=== PATIENT | female | born 1950 | race Two or more races ===

== ENCOUNTER → 2025-05-17 | Day surgery (SDC) | payer OTHER | END | disposition home or self-care (01) | LOC: FMAMMOTONE 09:47 → EDSTATUS 10:30 | PROVIDERS: ATTEND Surgery | PROC: 0H95XZX Drainage of Chest Skin, External Approach, Diagnostic (ICD-10-PCS; principal; 2025-05-17) | DX: N60.91 Unspecified benign mammary dysplasia of right breast (principal); R92.1 Mammographic calcification found on diagnostic imaging of breast | CPT/HCPCS: 19081; C1739; 76098-TC-FY; 87899; 88305-TC; A4648 ==

== ENCOUNTER → 2025-06-28 | Day surgery (SDC) | payer OTHER | END | disposition home or self-care (01) | LOC: FMAMMOTONE 08:53 | PROVIDERS: ATTEND Surgery | PROC: 0H9T3ZX Drainage of Right Breast, Percutaneous Approach, Diagnostic (ICD-10-PCS; principal; 2025-06-28) | DX: D24.1 Benign neoplasm of right breast (principal) | CPT/HCPCS: 19081; C1739; 76098-TC-FY; 87899; A4648 ==